=== PATIENT | female | born 1975 | race Caucasian/White ===

== ENCOUNTER 2019-10-27 08:22 | Outpatient (CLI) | payer OTHER ==
--- NOTE | 2019-10-27 08:43 | RAD ---
RADIOGRAPH CHEST 2 VIEWS: DATE: 10/27/2019 HISTORY: 43-year-old female with cough and chest tightness FINDINGS: There is no airspace density, pulmonary edema, pleural effusion, pneumothorax, or cardiomegaly. IMPRESSION: No acute cardiopulmonary findings.
== END 2019-10-27 08:23 | disposition home or self-care (01) ==
LOC: BICRAD 08:22
PROVIDERS: ATTEND Family Medicine
DX: R05 Cough (principal)
CPT/HCPCS: 71046